=== PATIENT | male | born 1985 | race Caucasian/White ===

== ENCOUNTER 2020-08-21 15:46 | Emergency (ER) | payer MEDICARE, OTHER ==
[2020-08-21 15:55] VITALS: TEMP 98.6
[2020-08-21] MEDS ORDERED: LORazepam 2 MG/ML INJ IV STA (16:15)
--- NOTE | 2020-08-21 16:21 | ED ---
Seizure HPI - General Chief Complaint: Seizure Stated Complaint: seizure Source: patient Mode of arrival: EMS Limitations: altered mental status - History of Present Illness Initial Comments: 35-year-old male with past history of autism, seizure disorder presents emergency Department with reported breakthrough seizure. History is supplemented by the parents are at bedside. They state that the patient has had one previous seizure, last of which was 3 years ago. The patient subsequently had a second seizure today. They note follow with a neurologist. Patient is on several medications which she has been taking as directed. Patient is also on amlodipine however has been out of this medication for the past 2 days. They deny any recent head trauma. No fevers. Patient has been acting at his baseline. No notable weakness. Remainder of the HPI is limited because of the patient's history of autism - Related Data Home Medications Medication Instructions Recorded Confirmed ALPRAZolam [Xanax] 1 mg PO HS PRN 08/21/20 08/21/20 ARIPiprazole [Abilify] 5 mg PO DAILY 08/21/20 08/21/20 ARIPiprazole [Abilify] 20 mg PO DAILY 08/21/20 08/21/20 Mirtazapine [Remeron] 45 mg PO HS 08/21/20 08/21/20 QUEtiapine FUMARATE [SEROquel] 200 mg PO DAILY 08/21/20 08/21/20 QUEtiapine [SEROquel] 100 mg PO HS 08/21/20 08/21/20 amLODIPine BESYLATE/BENAZEPRIL 1 tab PO DAILY 08/21/20 08/21/20 [amLODIPine BESYLATE/BENAZEPRIL 5-20 MG] lamoTRIgine 200 mg PO DAILY 08/21/20 08/21/20 Allergies Allergy/AdvReac Type Severity Reaction Status Date / Time cat dander Allergy Rash/Hives Verified 08/21/20 17:29 Review of Systems ROS Statement: Those systems with pertinent positive or pertinent negative responses have been documented in the HPI. ROS Other: All systems not noted in ROS Statement are negative. Past Medical History Past Medical History: Hypertension, Skin Disorder Additional Past Medical History / Comment(s): eczema, autism History of Any Multi-Drug Resistant Organisms: None Reported Past Surgical History: No Surgical Hx Reported Past Anesthesia/Blood Transfusion Reactions: No Reported Reaction Past Psychological History: No Psychological Hx Reported Past Alcohol Use History: None Reported Past Drug Use History: None Reported - Past Family History Father Family Medical History: Hypertension Additional Family Medical History / Comment(s): anxiety Mother Family Medical History: No Reported History General Exam Limitations: altered mental status General appearance: alert, in no apparent distress Head exam: Present: atraumatic, normocephalic, normal inspection Eye exam: Present: normal appearance, PERRL, EOMI. Absent: scleral icterus, conjunctival injection, periorbital swelling Respiratory exam: Present: normal lung sounds bilaterally. Absent: respiratory distress, wheezes, rales, rhonchi, stridor Cardiovascular Exam: Present: normal rhythm, tachycardia GI/Abdominal exam: Present: soft, normal bowel sounds. Absent: distended, tenderness, guarding, rebound, rigid Neurological exam: Present: alert, CN II-XII intact, other (non-verbal) Psychiatric exam: Present: anxious Course Vital Signs 08/21/20 08/21/20 15:48 17:27 Temperature 98.6 F Pulse Rate 156 H 120 H Respiratory 22 18 Rate Blood Pressure 163/102 137/86 O2 Sat by Pulse 96 99 Oximetry Medical Decision Making - Medical Decision Making Upon arrival the patient is placed into room 23. History and physical exam was performed. Patient hooked to continuous pulse ox and cardiac monitoring. IV had been established by EMS. Laboratory studies are conducted. Patient was given 1 mg of Ativan. Laboratory studies are reviewed. Glucose 197. EKG d emonstrates a sinus tachycardia. Results are discussed with the patient's family. I did recommend neurology follow-up. Lamictal level is pending. Family will be called with results if abnormal. Patient is given follow-up information for the seizure clinic. Instructed to call Monday to make an appointment. Return for any new or worsening symptoms. Patient discharged home in stable condition - Lab Data Result diagrams: 08/21/20 16:39 08/21/20 16:39 Lab Results 08/21/20 08/21/20 08/21/20 Range/Units 16:39 16:39 16:39 WBC 9.3 (3.8-10.6) k/uL RBC 4.80 (4.30-5.90) m/uL Hgb 14.8 (13.0-17.5) gm/dL Hct 43.8 (39.0-53.0) % MCV 91.2 (80.0-100.0) fL MCH 30.8 (25.0-35.0) pg MCHC 33.7 (31.0-37.0) g/dL RDW 12.6 (11.5-15.5) % Plt Count 322 (150-450) k/uL MPV 8.9 Neutrophils % 82 % Lymphocytes % 12 % Monocytes % 4 % Eosinophils % 1 % Basophils % 0 % Neutrophils # 7.6 (1.3-7.7) k/uL Lymphocytes # 1.1 (1.0-4.8) k/uL Monocytes # 0.4 (0-1.0) k/uL Eosinophils # 0.1 (0-0.7) k/uL Basophils # 0.0 (0-0.2) k/uL Sodium 140 (137-145) mmol/L Potassium 4.2 (3.5-5.1) mmol/L Chloride 102 (98-107) mmol/L Carbon Dioxide 20 L (22-30) mmol/L Anion Gap 18 mmol/L BUN 18 (9-20) mg/dL Creatinine 1.05 (0.66-1.25) mg/dL Est GFR (CKD-EPI)AfAm >90 (>60 ml/min/1.73 sqM) Est GFR (CKD-EPI)NonAf >90 (>60 ml/min/1.73 sqM) Glucose 197 H (74-99) mg/dL Calcium 10.2 (8.4-10.2) mg/dL Magnesium 2.2 (1.6-2.3) mg/dL Total Bilirubin 0.3 (0.2-1.3) mg/dL AST 36 (17-59) U/L ALT 35 (4-49) U/L Alkaline Phosphatase 138 H (38-126) U/L Total Protein 8.2 (6.3-8.2) g/dL Albumin 5.3 H (3.5-5.0) g/dL Lamotrigine (2.0-15.0) ug/mL 08/21/20 Range/Units 16:39 WBC (3.8-10.6) k/uL RBC (4.30-5.90) m/uL Hgb (13.0-17.5) gm/dL Hct (39.0-53.0) % MCV (80.0-100.0) fL MCH (25.0-35.0) pg MCHC (31.0-37.0) g/dL RDW (11.5-15.5) % Plt Count (150-450) k/uL MPV Neutrophils % % Lymphocytes % % Monocytes % % Eosinophils % % Basophils % % Neutrophils # (1.3-7.7) k/uL Lymphocytes # (1.0-4.8) k/uL Monocytes # (0-1.0) k/uL Eosinophils # (0-0.7) k/uL Basophils # (0-0.2) k/uL Sodium (137-145) mmol/L Potassium (3.5-5.1) mmol/L Chloride (98-107) mmol/L Carbon Dioxide (22-30) mmol/L Anion Gap mmol/L BUN (9-20) mg/dL Creatinine (0.66-1.25) mg/dL Est GFR (CKD-EPI)AfAm (>60 ml/min/1.73 sqM) Est GFR (CKD-EPI)NonAf (>60 ml/min/1.73 sqM) Glucose (74-99) mg/dL Calcium (8.4-10.2) mg/dL Magnesium (1.6-2.3) mg/dL Total Bilirubin (0.2-1.3) mg/dL AST (17-59) U/L ALT (4-49) U/L Alkaline Phosphatase (38-126) U/L Total Protein (6.3-8.2) g/dL Albumin (3.5-5.0) g/dL Lamotrigine 4.9 (2.0-15.0) ug/mL - EKG Data EKG Comments: EKG demonstrates sinus tachycardia with a ventricular rate of 159. DE interval 122. QRS 92. QTC of 510. No acute ST segment elevations or depressions Disposition Clinical Impression: Seizure disorder Disposition: HOME SELF-CARE Condition: Stable Instructions (If sedation given, give patient instructions): Seizure/Epilepsy Discharge Instructions & Follow-Up, Recurrent Seizures in Adults (ED) Additional Instructions: Please call the seizure clinic first for an appointment. You may call one of the other listed neurologists should you not be able to get an appt at the seizure clinic. Return to the ED for any new or worsening symptoms. Is patient prescribed a controlled substance at d/c from ED?: No Referrals: Luz Green MD [REFERRING] - 1-2 days Sharmila Parra MD [REFERRING] - 1-2 days Toño Musa MD [STAFF PHYSICIAN] - 1-2 days Mark Mata MD [Medical Doctor] - 1-2 days Time of Disposition: 18:34
[2020-08-21 16:52] LABS: Basophils % (A) 0 %; Eosinophils # (A) 0.1 k/uL (0-0.7); Eosinophils % (A) 1 %; HCT 43.8 % (39.0-53.0); HGB 14.8 gm/dL (13.0-17.5); Lymphocytes # (A) 1.1 k/uL (1.0-4.8); Lymphocytes % (A) 12 %; MCH 30.8 pg (25.0-35.0); MCHC 33.7 g/dL (31.0-37.0); MCV 91.2 fL (80.0-100.0); Mean Platelet Volume 8.9; Monocytes # (A) 0.4 k/uL (0-1.0); Monocytes % (A) 4 %; Neutrophils # (A) 7.6 k/uL (1.3-7.7); Neutrophils % (A) 82 %; Platelet Count 322 k/uL (150-450); RDW 12.6 % (11.5-15.5); WBC 9.3 k/uL (3.8-10.6)
[2020-08-21 17:03] LABS: ALT 35 U/L (4-49); AST 36 U/L (17-59); African American GFR (CKD) >90 (>60 ml/min/1.73 sqM); Albumin 5.3 g/dL (3.5-5.0); Alkaline Phosphatase 138 U/L (38-126); Anion Gap 18 mmol/L; Blood Urea Nitrogen 18 mg/dL (9-20); Calcium 10.2 mg/dL (8.4-10.2); Carbon Dioxide 20 mmol/L (22-30); Chloride 102 mmol/L (98-107); Glucose 197 mg/dL (74-99); Non-African American GFR(CKD) >90 (>60 ml/min/1.73 sqM); Potassium 4.2 mmol/L (3.5-5.1); Sodium 140 mmol/L (137-145); Total Bilirubin 0.3 mg/dL (0.2-1.3); Total Protein 8.2 g/dL (6.3-8.2)
[2020-08-21 17:36] VITALS: BP 137/86; PULSE 120; RESP 18
== END 2020-08-21 18:51 | disposition home or self-care (01) ==
LOC: EEVIPCON 15:46 → EC 15:46
DX: G40.909 Epilepsy, unspecified, not intractable, without status epilepticus (principal); I10 Essential (primary) hypertension; Z79.899 Other long term (current) drug therapy; Z91.09 Other allergy status, other than to drugs and biological substances
CPT/HCPCS: 36415; 93005; 80053; 80175; 83735; 85025; 99284; 96374; J2060

== ENCOUNTER 2022-08-15 18:29 | Emergency (ER) | payer MEDICARE, OTHER ==
--- NOTE | 2022-08-15 18:44 | ED ---
Seizure HPI - General Stated Complaint: Seizure Time Seen by Provider: 08/15/22 18:31 Limitations: physical limitation (Patient with history of autism and nonverbal) - History of Present Illness Initial Comments: This patient is a 37-year-old man with history of autism, seizure disorder, who is brought to have evaluation after he had a seizure. History is from the patient's father who states they were at the store when the patient abruptly had a seizure. The patient fell striking his left brow had tonic-clonic movements that lasted nearly minutes and then stopped. Patient brought here to have evaluation, he is nonverbal and cannot give additional history. Patient's neurologic care is through Dr. Parra here in [facility] and he reportedly is taking Lamictal, has not reportedly missed any doses. His last seizure was proximally 6 months ago. MD Complaint: seizure -: minutes(s) Description of Episode: loss of consciousness, tonic-clonic movement -: second(s) Witnessed: yes - by bystander Trauma: Yes Seizure History: known seizure disorder Place: other Possible Precipitating Event: none Treatments Prior to Arrival: none - Related Data Home Medications Medication Instructions Recorded Confirmed ALPRAZolam [Xanax] 1 mg PO BID PRN 08/21/20 08/15/22 Mirtazapine [Remeron] 45 mg PO HS 08/21/20 08/15/22 QUEtiapine FUMARATE [SEROquel] 200 mg PO DAILY 08/21/20 08/15/22 QUEtiapine [SEROquel] 100 mg PO HS 08/21/20 08/15/22 lamoTRIgine 200 mg PO DAILY 08/21/20 08/15/22 ARIPiprazole [Abilify] 30 mg PO DAILY 08/15/22 08/15/22 Amlodipine Besylate/Valsartan 1 tab PO DAILY 08/15/22 08/15/22 [Amlodipine-Valsartan 5-160 mg] Cholecalciferol [Vitamin D3 (25 50 mcg PO DAILY 08/15/22 08/15/22 Mcg = 1000 Iu)] Docusate [Colace] 100 mg PO Q48H 08/15/22 08/15/22 Lacosamide [Vimpat] 50 mg PO BID 08/15/22 08/15/22 Midazolam [Nayzilam] 5 mg NASAL DIRECTED PRN 08/15/22 08/15/22 lamoTRIgine [LaMICtal] 75 mg PO HS 08/15/22 08/15/22 Allergies Allergy/AdvReac Type Severity Reaction Status Date / Time cat dander Allergy Rash/Hives Verified 08/15/22 20:00 Review of Systems ROS Statement: Those systems with pertinent positive or pertinent negative responses have been documented in the HPI. ROS Other: All systems not noted in ROS Statement are negative. Limitations: ROS unobtainable due to patients medical condition Constitutional: Denies: fever Respiratory: Denies: cough, dyspnea Gastrointestinal: Denies: vomiting, diarrhea Neurological: Denies: weakness Past Medical History Past Medical History: Hypertension, Skin Disorder Additional Past Medical History / Comment(s): eczema, autism History of Any Multi-Drug Resistant Organisms: None Reported Past Surgical History: No Surgical Hx Reported Past Anesthesia/Blood Transfusion Reactions: No Reported Reaction Past Psychological History: No Psychological Hx Reported Past Alcohol Use History: None Reported Past Drug Use History: None Reported - Past Family History Father Family Medical History: Hypertension Additional Family Medical History / Comment(s): anxiety Mother Family Medical History: No Reported History General Exam General appearance: alert, in no apparent distress Head exam: Present: normocephalic, other (Patient has contusion to left brow. No palpable deformity. No appreciable tenderness) Eye exam: Present: normal appearance, PERRL, EOMI, periorbital swelling (As above). Absent: scleral icterus, conjunctival injection, nystagmus Neck exam: Present: normal inspection, full ROM. Absent: tenderness, meningismus Respiratory exam: Present: normal lung sounds bilaterally. Absent: respiratory distress, wheezes, rales, rhonchi, stridor, chest wall tenderness, accessory muscle use Cardiovascular Exam: Present: normal rhythm, tachycardia (Rate 104 at my exam), normal heart sounds. Absent: systolic murmur, diastolic murmur, rubs, gallop GI/Abdominal exam: Present: soft. Absent: distended, tenderness, guarding, rebound, rigid, mass Extremities exam: Present: normal inspection, normal capillary refill. Absent: pedal edema, calf tenderness Back exam: Present: normal inspection. Absent: CVA tenderness (R), CVA tenderness (L) Neurological exam: Present: alert, CN II-XII intact. Absent: motor sensory deficit Skin exam: Present: warm, dry, intact, normal color. Absent: rash Course Vital Signs 08/15/22 18:29 Temperature 97.7 F Pulse Rate 76 Respiratory 18 Rate Blood Pressure 139/92 O2 Sat by Pulse 94 L Oximetry Medical Decision Making - Medical Decision Making Was pt. sent in by a medical professional or institution ([facility], [facility], urgent care, hospital, or alf...) When possible be specific @ -[No] Did you speak to anyone other than the patient for history (EMS, parent, family, police, friend...)? What history was obtained from this source @ -[Patient's family did give additional history Did you review nursing and triage notes (agree or disagree)? Why? @ -[I reviewed and agree with nursing and triage notes] Were old charts reviewed (outside hosp., previous admission, EMS record, old EKG, old radiological studies, urgent care reports/EKG's, alf records)? Report findings @ -[No old charts were reviewed] Differential Diagnosis (chest pain, altered mental status, abdominal pain women, abdominal pain men, vaginal bleeding, weakness, fever, dyspnea, syncope, headache, dizziness, GI bleed, back pain, seizure, CVA, palpatations, mental health, musculoskeletal)? @ -[Differential Seizure: Recurrent seizure disorder, febrile seizure, alcohol withdrawal, stimulants, meningitis, encephalitis, intercranial hemorrhage, intracranial tumor, stroke, eclampsia, thyrotoxicosis, hypocalcemia, hyponatremia, hypernatremia, hypomagnesemia, psychogenic, this is not meant to be an all-inclusive list. EKG interpreted by me (3pts min.). @ -[ X-rays interpreted by me (1pt min.). @ -[None done] CT interpreted by me (1pt min.). @ -[None done] U/S interpreted by me (1pt. min.). @ -[None done] What testing was considered but not performed or refused? (CT, X-rays, U/S, labs)? Why? @ -[None] What meds were considered but not given or refused? Why? @ -[None] Did you discuss the management of the patient with other professionals (professionals i.e. , [facility], [facility], lab, RT, psych nurse, social service agency director, learning technologies specialist, teacher, ground nuclear weapons assembly officer, casey saw operator)? Give summary @ -[No] Was smoking cessation discussed for >3mins.? @ -[No] Was critical care preformed (if so, how long)? @ -[No] Were there social determinants of health that impacted care today? How? (Homelessness, low income, unemployed, alcoholism, drug addiction, transportation, low edu. Level, literacy, decrease access to med. care, [facility], rehab)? @ -[No] Was there de-escalation of care discussed even if they declined (Discuss DNR or withdrawal of care, Hospice)? DNR status @ -[No] What co-morbidities impacted this encounter? (DM, HTN, Smoking, COPD, CAD, Cancer, CVA, ARF, Chemo, Hep., AIDS, mental health diagnosis, sleep apnea, morbid obesity)? @ -[None] Was patient admitted / discharged? Hospital course, mention meds given and route, prescriptions, significant lab abnormalities, going to OR and other pertinent info. @ -[The patient is a 37-year-old man who had acute seizure. The patient did return to his baseline and family did want to take him home. Discharged to follow up with his neurologist. Discussed return parameters Undiagnosed new problem with uncertain prognosis? @ -[No] Drug Therapy requiring intensive monitoring for toxicity (Heparin, Nitro, Insulin, Cardizem)? @ -[No] Were any procedures done? @ -[No] Diagnosis/symptom? @ -[Acute seizure in patient with chronic seizure disorder Acute, or Chronic, or Acute on Chronic? @ -[Acute on chronic Uncomplicated (without systemic symptoms) or Complicated (systemic symptoms)? @ -[Uncomplicated Side effects of treatment? @ -[No] Exacerbation, Progression, or Severe Exacerbation? @ -[No] Poses a threat to life or bodily function? How? (Chest pain, USA, CA, pneumonia, PE, COPD, DKA, ARF, appy, cholecystitis, CVA, Diverticulitis, Homicidal, Suicidal, threat to staff... and all critical care pts) @ -[No] - Lab Data Result diagrams: 08/15/22 18:52 08/15/22 18:52 Lab Results 08/15/22 08/15/22 08/15/22 Range/Units 18:52 18:52 18:52 WBC 13.6 H (3.8-10.6) k/uL RBC 4.64 (4.30-5.90) m/uL Hgb 14.2 (13.0-17.5) gm/dL Hct 43.0 (39.0-53.0) % MCV 92.8 (80.0-100.0) fL MCH 30.6 (25.0-35.0) pg MCHC 32.9 (31.0-37.0) g/dL RDW 12.1 (11.5-15.5) % Plt Count 352 (150-450) k/uL MPV 9.6 Neutrophils % 84 % Lymphocytes % 9 % Monocytes % 5 % Eosinophils % 1 % Basophils % 0 % Neutrophils # 11.5 H (1.3-7.7) k/uL Lymphocytes # 1.2 (1.0-4.8) k/uL Monocytes # 0.7 (0-1.0) k/uL Eosinophils # 0.1 (0-0.7) k/uL Basophils # 0.0 (0-0.2) k/uL Sodium 140 (137-145) mmol/L Potassium 4.9 (3.5-5.1) mmol/L Chloride 102 (98-107) mmol/L Carbon Dioxide 23 (22-30) mmol/L Anion Gap 15 mmol/L BUN 17 (9-20) mg/dL Creatinine 0.89 (0.66-1.25) mg/dL Est GFR (CKD-EPI)AfAm >90 (>60 ml/min/1.73 sqM) Est GFR (CKD-EPI)NonAf >90 (>60 ml/min/1.73 sqM) Glucose 152 H (74-99) mg/dL Lactic Ac Sepsis Rflx Plasma Lactic Acid Roger (0.7-2.0) mmol/L Calcium 9.9 (8.4-10.2) mg/dL Magnesium 2.6 H (1.6-2.3) mg/dL Total Bilirubin 0.5 (0.2-1.3) mg/dL AST 27 (17-59) U/L ALT 23 (4-49) U/L Alkaline Phosphatase 108 (38-126) U/L Total Protein 8.5 H (6.3-8.2) g/dL Albumin 5.2 H (3.5-5.0) g/dL TSH 2.630 (0.465-4.680) mIU/L Lamotrigine 2.3 (2.0-15.0) ug/mL 08/15/22 08/15/22 Range/Units 18:52 21:06 WBC (3.8-10.6) k/uL RBC (4.30-5.90) m/uL Hgb (13.0-17.5) gm/dL Hct (39.0-53.0) % MCV (80.0-100.0) fL MCH (25.0-35.0) pg MCHC (31.0-37.0) g/dL RDW (11.5-15.5) % Plt Count (150-450) k/uL MPV Neutrophils % % Lymphocytes % % Monocytes % % Eosinophils % % Basophils % % Neutrophils # (1.3-7.7) k/uL Lymphocytes # (1.0-4.8) k/uL Monocytes # (0-1.0) k/uL Eosinophils # (0-0.7) k/uL Basophils # (0-0.2) k/uL Sodium (137-145) mmol/L Potassium (3.5-5.1) mmol/L Chloride (98-107) mmol/L Carbon Dioxide (22-30) mmol/L Anion Gap mmol/L BUN (9-20) mg/dL Creatinine (0.66-1.25) mg/dL Est GFR (CKD-EPI)AfAm (>60 ml/min/1.73 sqM) Est GFR (CKD-EPI)NonAf (>60 ml/min/1.73 sqM) Glucose (74-99) mg/dL Lactic Ac Sepsis Rflx Y Plasma Lactic Acid Roger 4.0 H* (0.7-2.0) mmol/L Calcium (8.4-10.2) mg/dL Magnesium (1.6-2.3) mg/dL Total Bilirubin (0.2-1.3) mg/dL AST (17-59) U/L ALT (4-49) U/L Alkaline Phosphatase (38-126) U/L Total Protein (6.3-8.2) g/dL Albumin (3.5-5.0) g/dL TSH (0.465-4.680) mIU/L Lamotrigine (2.0-15.0) ug/mL Disposition Clinical Impression: Seizure disorder Disposition: HOME SELF-CARE Condition: Good Instructions (If sedation given, give patient instructions): Recurrent Seizures in Adults (ED) Is patient prescribed a controlled substance at d/c from ED?: No Referrals: None,Stated [REFERRING] - 1-2 days
[2022-08-15 18:49] VITALS: BP 139/92; PULSE 76; RESP 18; TEMP 97.7
[2022-08-15 20:19] LABS: Basophils % (A) 0 %; Eosinophils # (A) 0.1 k/uL (0-0.7); Eosinophils % (A) 1 %; HGB 14.2 gm/dL (13.0-17.5); Lymphocytes # (A) 1.2 k/uL (1.0-4.8); Lymphocytes % (A) 9 %; MCH 30.6 pg (25.0-35.0); MCHC 32.9 g/dL (31.0-37.0); MCV 92.8 fL (80.0-100.0); Mean Platelet Volume 9.6; Monocytes # (A) 0.7 k/uL (0-1.0); Monocytes % (A) 5 %; Neutrophils # (A) 11.5 k/uL (1.3-7.7); Neutrophils % (A) 84 %; Platelet Count 352 k/uL (150-450); RBC 4.64 m/uL (4.30-5.90); RDW 12.1 % (11.5-15.5); WBC 13.6 k/uL (3.8-10.6)
[2022-08-15 20:38] LABS: ALT 23 U/L (4-49); AST 27 U/L (17-59); African American GFR (CKD) >90 (>60 ml/min/1.73 sqM); Albumin 5.2 g/dL (3.5-5.0); Alkaline Phosphatase 108 U/L (38-126); Anion Gap 15 mmol/L; Blood Urea Nitrogen 17 mg/dL (9-20); Calcium 9.9 mg/dL (8.4-10.2); Carbon Dioxide 23 mmol/L (22-30); Chloride 102 mmol/L (98-107); Glucose 152 mg/dL (74-99); Magnesium 2.6 mg/dL (1.6-2.3); Non-African American GFR(CKD) >90 (>60 ml/min/1.73 sqM); Potassium 4.9 mmol/L (3.5-5.1); Sodium 140 mmol/L (137-145); Total Bilirubin 0.5 mg/dL (0.2-1.3); Total Protein 8.5 g/dL (6.3-8.2)
== END 2022-08-15 21:46 | disposition home or self-care (01) ==
LOC: EC 18:29
DX: G40.909 Epilepsy, unspecified, not intractable, without status epilepticus (principal); I10 Essential (primary) hypertension; Z79.899 Other long term (current) drug therapy; Z88.8 Allergy status to other drugs, medicaments and biological substances
CPT/HCPCS: 36415; 80053; 80175; 83605; 83735; 84443; 85025; 99284